=== PATIENT | female | born 2005 | race Caucasian/White ===

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

== ENCOUNTER 2025-07-27 15:01 | Outpatient (REF) | payer MEDICAID, SELFPAY ==
[2025-07-28 10:14] LABS: HIV-1/2 Ag & Ab Screen Negative (Negative)
[2025-07-28 10:22] LABS: Syphilis Serology (RPR) Negative (Negative)
[2025-07-28 12:04] LABS: Hepatitis C Ab w Rflx HCV PCR Negative (Negative)
[2025-07-28 13:29] LABS: Chlamydia Result Negative (Negative); GC Result Negative (Negative)
== END 2025-07-27 15:02 | disposition home or self-care (01) ==
LOC: NCHCN 15:01
PROVIDERS: PCP Physician Assistant Medical; Visit Provider Physician Assistant Medical
DX: Z11.3 Encounter for screening for infections with a predominantly sexual mode of transmission (principal)
CPT/HCPCS: 86803; 87389; 87491; 87591; 86592

== ENCOUNTER 2025-08-17 10:01 | Outpatient (CLI) | payer MEDICAID, SELFPAY ==
--- NOTE | 2025-08-17 | DI.RAD_ITS ---
Exam(s) XR ABDOMEN FLAT PLATE EXAM: 2D digital imaging was performed. CLINICAL HISTORY: ACUTE CONSTIPATION, K59.00. COMPARISON: No exams were available for comparison TECHNIQUE: Supine views of the abdomen performed. Two views are obtained. FINDINGS: BOWEL GAS PATTERN: Nondistended. There is a moderate amount of retained stool in the colon. There is no evidence of bowel obstruction. CALCIFICATIONS: No radiopaque calcifications. OSSEOUS STRUCTURES: Normal for age. OTHER FINDINGS: There are surgical clips in the right upper quadrant of the abdomen. IMPRESSION: 1. Nonobstructive bowel gas pattern. 2. There is a moderate amount of retained stool in the colon. DATA REPOSITORY: RADIATION DOSE DELIVERED:
== END 2025-08-17 10:21 ==
LOC: DI 10:02
PROVIDERS: PCP Physician Assistant Medical
DX: K59.00 Constipation, unspecified (principal)
CPT/HCPCS: 74018

== ENCOUNTER 2025-10-04 | Outpatient (REF) | payer MEDICAID, SELFPAY ==
[2025-10-06 11:56] LABS: Chlamydia Result Negative (Negative); GC Result Negative (Negative)
== END 2025-10-04 00:01 | disposition home or self-care (01) ==
LOC: LBN
PROVIDERS: PCP Physician Assistant Medical; Visit Provider Advanced Practice Midwife
DX: Z11.3 Encounter for screening for infections with a predominantly sexual mode of transmission (principal)
CPT/HCPCS: 87491; 87591